=== PATIENT | male | born 1985 | race Caucasian/White ===

== ENCOUNTER 2016-05-24 17:30 | Emergency (ER) | payer SELFPAY ==
--- NOTE | 2016-05-24 19:32 | NUR ---
PATIENT LEFT WITHOUT BEING SEEN BY DR. SANTIZO. NO FURTHER CARE PROVIDED FOR PATIENT.
== END 2016-05-24 19:32 | disposition left against medical advice (07) ==
LOC: MED 17:30
DX: N64.4 Mastodynia (principal); Z53.21 Procedure and treatment not carried out due to patient leaving prior to being seen by health care provider

== ENCOUNTER 2016-11-03 04:35 | Emergency (ER) | payer OTHER ==
[~2016-11-03] VITALS: Ht 188 cm; Wt 108.9 kg
[2016-11-03 04:36] VITALS: BP 156/98
[2016-11-03] MEDS ORDERED: NACL 0.9% 1,000 ML IV ONE (04:50)
[2016-11-03] MEDS ORDERED: LORazepam 2 MG/ML VIAL IVP ONE (04:50)
[2016-11-03 05:43] VITALS: BP 145/65
== END 2016-11-03 05:43 | disposition home or self-care (01) ==
LOC: MED 04:35
DX: R07.89 Other chest pain (principal); F41.9 Anxiety disorder, unspecified; R03.0 Elevated blood-pressure reading, without diagnosis of hypertension; F12.90 Cannabis use, unspecified, uncomplicated
CPT/HCPCS: 93005; 96374; 99284; J2060; J7030